=== PATIENT | female | born 1995 | race Caucasian/White ===

== ENCOUNTER 2019-01-15 15:24 | Emergency (ER) | payer MEDICAID, OTHER ==
[~2019-01-15] VITALS: Ht 142.2 cm; Wt 52.3 kg
[~2019-01-15 15:24] MED LIST: METH4TAB3 PO; METH500T PO; ONDA4TAB6 PO
[2019-01-15 15:27] VITALS: BP 120/70
--- NOTE | 2019-01-15 15:31 | NUR ---
PT REPORTS THAT SHE CAN NOT BE . SHE IS SARAH AND HAD HER TUBES TIED 2018. PT HAS 3 KIDS.
[2019-01-15 15:54] LABS: BASOPHILS % (AUTO) 0.6 % (0-1); EOSINOPHILS # (AUTO) 0.2 X10'3 (0-0.9); EOSINOPHILS % (AUTO) 2.5 % (0-6); HEMATOCRIT 34.6 % (35.0-45.0); HEMOGLOBIN 11.6 g/dl (12.0-16.0); LYMPHOCYTES # (AUTO) 1.8 X10'3 (1.1-4.8); LYMPHOCYTES % (AUTO) 22.9 % (21-51); MEAN CORPUSCULAR HEMOGLOBIN 28.5 PG (27.0-31.0); MEAN CORPUSCULAR HGB CONC 33.3 g/dL (33.0-36.5); MEAN CORPUSCULAR VOLUME 85.4 FL (78-98); MEAN PLATELET VOLUME 6.5 FL (7.4-10.4); MONOCYTES # (AUTO) 0.5 X10'3 (0-0.9); MONOCYTES % (AUTO) 6.5 % (2-12); NEUTROPHILS # (AUTO) 5.4 X10'3 (1.8-7.7); NEUTROPHILS % (AUTO) 67.5 % (42-75); PLATELET COUNT 389 X10'3 (140-440); RED BLOOD COUNT 4.06 X10'6 (4.20-5.60); RED CELL DISTRIBUTION WIDTH 13.6 % (11.5-14.5)
[2019-01-15 16:13] LABS: ALANINE AMINOTRANSFERASE 51 U/L (12-78); ALBUMIN 3.9 G/DL (3.4-5.0); ALBUMIN/GLOBULIN RATIO 1.2 (1.1-1.5); ALKALINE PHOSPHATASE 50 IU/L (46-116); ANION GAP 9 (8-16); ASPARTATE AMINO TRANSFERASE 29 U/L (10-37); BILIRUBIN,TOTAL 0.2 MG/DL (0.1-1.0); BLOOD UREA NITROGEN 5 MG/DL (7-18); BUN/CREATININE RATIO 8.1 (6.6-38.0); CALCIUM 8.4 MG/DL (8.5-10.1); CHLORIDE 107 MMOL/L (99-107); CREATININE 0.62 MG/DL (0.40-0.90); GLUCOSE 85 MG/DL (70-104); SODIUM 143 MMOL/L (135-145); TOTAL CARBON DIOXIDE 26.9 MMOL/L (24-32); TOTAL PROTEIN 7.1 G/DL (6.4-8.2); eGFR > 90 ML/MIN
[2019-01-15 16:29] LABS: PARTIAL THROMBOPLASTIN TIME 27 SECONDS (22-32)
== END 2019-01-15 17:28 | disposition home or self-care (01) ==
LOC: ER 15:25
DX: G25.1 Drug-induced tremor (principal); R07.89 Other chest pain; F41.9 Anxiety disorder, unspecified; F31.9 Bipolar disorder, unspecified; Z88.8 Allergy status to other drugs, medicaments and biological substances; Z79.899 Other long term (current) drug therapy
CPT/HCPCS: 36415; 71045; 80053; 84484; 85025; 85610; 85730; 93005; 99284

== ENCOUNTER 2023-07-12 17:55 | Emergency (ER) | payer MEDICAID ==
[~2023-07-12] VITALS: Ht 142.2 cm; Wt 48.0 kg
[2023-07-12 20:42] LABS: BASOPHILS # (AUTO) 0.1 X10'3 (0-0.2); BASOPHILS % (AUTO) 0.9 % (0-1); EOSINOPHILS # (AUTO) 0.4 X10'3 (0-0.9); EOSINOPHILS % (AUTO) 3.5 % (0-6); HEMATOCRIT 38.1 % (35.0-45.0); HEMOGLOBIN 12.7 g/dl (12.0-16.0); LYMPHOCYTES # (AUTO) 2.6 X10'3 (1.1-4.8); MEAN CORPUSCULAR HEMOGLOBIN 29.3 PG (27.0-31.0); MEAN CORPUSCULAR HGB CONC 33.3 g/dL (33.0-36.5); MEAN CORPUSCULAR VOLUME 88.2 FL (78-98); MEAN PLATELET VOLUME 6.9 FL (7.4-10.4); MONOCYTES # (AUTO) 0.6 X10'3 (0-0.9); MONOCYTES % (AUTO) 5.5 % (2-12); NEUTROPHILS # (AUTO) 7.5 X10'3 (1.8-7.7); NEUTROPHILS % (AUTO) 67.1 % (42-75); PLATELET COUNT 492 X10'3 (140-440); RED BLOOD COUNT 4.31 X10'6 (4.20-5.60); RED CELL DISTRIBUTION WIDTH 13.1 % (11.5-14.5); WHITE BLOOD COUNT 11.2 X10'3 (4.5-11.0)
[2023-07-12 20:49] LABS: ALBUMIN 3.7 G/DL (3.4-5.0); ANION GAP 9 (8-16); BLOOD UREA NITROGEN 4 MG/DL (7-18); BUN/CREATININE RATIO 7.3 (10.0-20.0); CALCIUM 8.5 MG/DL (8.5-10.1); CHLORIDE 104 MMOL/L (99-107); CREATININE 0.55 MG/DL (0.40-0.90); GLUCOSE 93 MG/DL (70-104); POTASSIUM 4.4 MMOL/L (3.5-5.1); SODIUM 141 MMOL/L (135-145); TOTAL CARBON DIOXIDE 27.6 MMOL/L (24-32); eCRCL 89 ML/MIN; eGFR > 90 ML/MIN
[2023-07-12] MEDS ORDERED: ketorolac trometh. 30mg/ml inj. IV ONE (21:25)
[2023-07-12] MEDS: ondansetron 4mg rapidly disintigrating tab PO ONE (21:48)
[2023-07-12] MEDS: ketorolac tromethamine 15mg/ml inj. IM ONE (21:49)
[2023-07-12 22:43] VITALS: BP 105/68; PULSE 61; RESP 16; TEMP 98.2; O2SAT 99
== END 2023-07-12 22:45 | disposition home or self-care (01) ==
LOC: ER 17:56
DX: R55 Syncope and collapse (principal)
CPT/HCPCS: 36415; 70450; 80048; 84484; 85025; 93005; 96372; 99285; J1885